=== PATIENT | female | born 1985 | race Caucasian/White ===

== ENCOUNTER 2018-10-03 14:09 | Emergency (ER) | payer OTHER ==
[~2018-10-03] VITALS: Ht 167.6 cm; Wt 93.0 kg
[2018-10-03 14:15] VITALS: BP 108/67
[2018-10-03] MEDS ORDERED: BACITRACIN TOP OINT 1 UD PKG TOP ONE (15:00)
[2018-10-03] MEDS ORDERED: LIDOCAINE 1% (LOCAL ANESTH.) PF 5ml SDV ID ONE (15:00)
== END 2018-10-03 16:56 | disposition home or self-care (01) ==
LOC: ER 14:09
DX: S61.219A Laceration without foreign body of unspecified finger without damage to nail, initial encounter (principal); W26.0XXA Contact with knife, initial encounter; Y93.89 Activity, other specified; Y99.8 Other external cause status; Y92.89 Other specified places as the place of occurrence of the external cause
CPT/HCPCS: 12001; 73130